=== PATIENT | female | born 1955 | race Caucasian/White ===

== ENCOUNTER 2018-05-13 05:52 | Day surgery (SDC) | payer BC ==
[~2018-05-13] VITALS: Ht 154.9 cm; Wt 73.9 kg
[~2018-05-13 05:52] MED LIST: GNP MELATONIN MA5 MG PO; LEVOTHYROXIN75 MC1 PO; VITAMIN D350000 UNIT PO; [UNRECOGNIZED DRUG - OTHER] PO; [UNRECOGNIZED DRUG - OTHER] PO
[2018-05-13 08:47] VITALS: BP 93/54
== END 2018-05-13 08:37 | disposition home or self-care (01) | DRG 951 ==
LOC: ENDO 05:52
PROVIDERS: ATTEND Surgery
PROC: 0DJD8ZZ Inspection of Lower Intestinal Tract, Via Natural or Artificial Opening Endoscopic (ICD-10-PCS; principal; 2018-05-13)
DX: Z12.11 Encounter for screening for malignant neoplasm of colon (principal); Q43.8 Other specified congenital malformations of intestine; K64.8 Other hemorrhoids; Z86.010 Personal history of colon polyps